=== PATIENT | male | born 1975 | race Caucasian/White ===

== ENCOUNTER 2019-09-14 11:53 | Emergency (ER) | payer SELFPAY ==
[~2019-09-14] VITALS: Ht 182.9 cm; Wt 111.4 kg
[2019-09-14 11:55] VITALS: BP 204/58; PULSE 91
--- NOTE | 2019-09-14 17:15 | NUR ---
CINDY received a call at approximately [phone] to report to the ER. Upon arrival, CINDY discovered patient was a "code blue," and that providers were working frantically to resusitate. CINDY was directed by charge nurse to speak with friends, and CINDY did speak with Brandy, who was identified as a ER nurse for another agency. Wif ewas in [place] at the time, and was returning to [place], the family originally lived in [place] but had traveled to [place] for the [employer]. Patients as called at 12:13, and patients family arrived around 45 minutes later. CINDY assisted charge nurse in providing support as needed, and made efforts to contact home. CINDY attended to the family as Tara and daughter viewed the body and made calls to family. CINDY left phone number with Tara in case further support was needed.
== END 2019-09-14 19:29 | disposition expired ==
LOC: COL.ER 11:53
DX: I46.9 Cardiac arrest, cause unspecified (principal)
CPT/HCPCS: J0171